=== PATIENT | male | born 1955 | race African-American/Black ===

== ENCOUNTER 2018-05-25 21:44 | Emergency (ER) | payer MEDICAID ==
[2018-05-25 22:02] VITALS: PULSE 70; TEMP 98.8
[2018-05-25] MEDS ORDERED: Sodium Chloride 0.9% 1,000 ML IV ONE (22:06)
[2018-05-25] MEDS ORDERED: Sodium Chloride 0.9% 1,000 ML ONE (22:34)
[2018-05-25 22:50] LABS: BASO % 0.8 % (0.0-2.0); EOS # 0.1 K/uL (0.0-0.7); EOS % 1.1 % (0.0-4.0); LYMPH % 31.9 % (20.0-40.0); MEAN CELL VOLUME 86.1 fL (80.0-94.0); MEAN CORPUSCULAR HEMOGLOBIN 29.9 pg (27.0-31.0); MEAN CORPUSCULAR HGB CONC 34.7 g/dL (33.0-37.0); MEAN PLATELET VOLUME 8.7 fL (7.2-11.7); MONO # 0.5 K/uL (0.0-0.8); MONO % 7.8 % (0.0-10.0); NEUT # 3.7 K/uL (1.8-7.0); NEUT % 58.4 % (50.0-75.0); NRBC % 0.1 % (0.0-2.0); RBC 5.02 Mil/uL (4.40-5.90); WHITE BLOOD COUNT 6.3 K/uL (4.8-10.8)
[2018-05-25 23:07] LABS: ALB/GLOB RATIO 1.2 (1.0-2.1); ALBUMIN 4.4 g/dL (3.5-5.0); ALT/SGPT 32 U/L (21-72); AST/SGOT 23 U/L (17-59); BLOOD UREA NITROGEN 18 mg/dL (9-20); CALCIUM 9.3 mg/dl (8.6-10.4); GFR NON-AFRICAN AMERICAN > 60; LIPASE 78 U/L (23-300)
--- NOTE | 2018-05-25 23:23 | C.PDOC ---
History Of Present Illness 62-year-old male presents to the ED for evaluation of left-sided flank pain that radiates to his left groin. Patient notes his symptoms resolved prior to ED arrival. He denies fever, chills, nausea, vomiting. Time Seen by Provider: 05/25/18 21:56 Chief Complaint (Nursing): Abdominal Pain History Per: Patient History/Exam Limitations: no limitations Onset/Duration Of Symptoms: Hrs Current Symptoms Are (Timing): Gone Radiation Of Pain To:: Flank (left) Quality Of Discomfort: "Pain" Associated Symptoms: denies: Fever, Chills, Nausea, Vomiting Additional History Per: Patient Past Medical History Reviewed: Historical Data, Nursing Documentation, Vital Signs Vital Signs: Last Vital Signs Temp 98.8 F 05/25/18 22:00 Pulse 70 05/25/18 23:28 Resp 14 05/25/18 23:28 BP 160/80 H 05/25/18 23:28 Pulse Ox 99 05/26/18 05:06 - Medical History PMH: HTN Surgical History: No Surg Hx Family History: States: Unknown Family Hx - Social History Hx Alcohol Use: No Hx Substance Use: No - Immunization History Hx Tetanus Toxoid Vaccination: No Hx Influenza Vaccination: No Hx Pneumococcal Vaccination: No Review Of Systems Constitutional: Negative for: Fever, Chills Gastrointestinal: Negative for: Nausea, Vomiting Musculoskeletal: Positive for: Other (left-sided flank pain, left groin pain ) Physical Exam - Physical Exam Appears: Non-toxic, No Acute Distress Skin: Normal Color, Warm, Dry Head: Atraumatic, Normacephalic Eye(s): bilateral: Normal Inspection Oral Mucosa: Moist Neck: Supple Chest: Symmetrical, No Deformity, No Tenderness Cardiovascular: Rhythm Regular, No Murmur Respiratory: Normal Breath Sounds, No Rales, No Rhonchi, No Wheezing Gastrointestinal/Abdominal: Soft, No Tenderness, No Guarding, No Rebound Back: Other (pain with percussion of costovertebral angle) Extremity: Normal ROM, Capillary Refill (less than 2 seconds ) Neurological/Psych: Oriented x3, Normal Speech, Normal Cognition ED Course And Treatment - Laboratory Results Result Diagrams: 05/25/18 22:44 05/25/18 22:44 O2 Sat by Pulse Oximetry: 99 (on RA) Pulse Ox Interpretation: Normal - CT Scan/US CT A/P Other Rad Studies (CT/US): Read By Radiologist, Radiology Report Reviewed CT/US Interpretation: IMPRESSION: Recently passed stone from the left collecting system now within the urinary bladder just beyond the. UVJ, 4 mm in size. Moderate left hydronephrosis is present. Progress Note: Bloodwork, urinalysis, CT A/P ordered and reviewed. Toradol IVP and IV fluids given. Medical Decision Making Medical Decision Making: passed L 4 mm stone Disposition Doctor Will See Patient In The: Office Counseled Patient/Family Regarding: Studies Performed, Diagnosis - Disposition Referrals: [facility] [Outside] [facility] [Outside] [facility] [Outside] Disposition: HOME/ ROUTINE Disposition Time: 23:22 Condition: GOOD Additional Instructions: passed 4 mm stone continue motrin 600 mg every 6 hours as needed drink plenty of water follow-up in our outpatient [facility] as needed. Instructions: Renal Colic Forms: [employer] ([place]) - Clinical Impression Clinical Impression: Renal colic on left side - Scribe Statement The provider has reviewed the documentation as recorded by the Scribe (Shannon Dao) Provider Attestation: All medical record entries made by the Scribe were at my direction and personally dictated by me. I have reviewed the chart and agree that the record accurately reflects my personal performance of the history, physical exam, medical decision making, and the department course for this patient. I have also personally directed, reviewed, and agree with the discharge instructions and disposition.
[2018-05-25 23:26] LABS: SQUAMOUS EPITHIAL < 1 /hpf (0-5); URINE BACTERIA RARE (<OCC); URINE BILIRUBIN NEGATIVE (NEGATIVE); URINE BLOOD 3+ (NEGATIVE); URINE CLARITY Hazy (Clear); URINE COLOR Yellow (YELLOW); URINE GLUCOSE (UA) NORMAL (Normal); URINE LEUKOCYTE ESTERASE TRACE Leu/uL (Negative); URINE PROTEIN NEGATIVE (NEGATIVE); URINE UROBILINOGEN NORMAL mg/dL (0.2-1.0)
[2018-05-25 23:31] VITALS: BP 160/80; RESP 14
[2018-05-26 05:06] VITALS: O2SAT 99
--- NOTE | 2018-05-26 09:24 | CT ---
Date of service: 05/25/2018 PROCEDURE: CT Abdomen and Pelvis without intravenous contrast HISTORY: L flank, ? renal colic COMPARISON: Not available TECHNIQUE: Without contrast.. Contrast dose: 0 Radiation dose: Total exam DLP = 456.86 mGy-cm. This CT exam was performed using one or more of the following dose reduction techniques: Automated exposure control, adjustment of the mA and/or kV according to patient size, and/or use of iterative reconstruction technique. FINDINGS: LOWER THORAX: Unremarkable. LIVER: Mild hepatomegaly. The liver measures approximately 22 cm craniocaudal. Mildly nodular contour suspicious for hepatic cirrhosis. Please correlate. No mass. No biliary dilatation. Normal attenuation. GALLBLADDER AND BILE DUCTS: Unremarkable. PANCREAS: Unremarkable. No gross lesion or ductal dilatation. SPLEEN: Mild splenomegaly. The spleen measures approximately 13.9 cm in greatest dimension. No mass. ADRENALS: Unremarkable. No mass. KIDNEYS AND URETERS: Mild left hydroureteronephrosis. There is a 5 mm calculus at the left ureteral orifice, possibly obstructing or resting dependently at the left bladder base. There is no renal calculus. There is a rounded hyperdense pedunculated right lower pole renal cortical mass, 1.5 cm in diameter. This measures 69 Hounsfield units in attenuation. Although this most likely represents a hyperdense cyst, correlation with renal ultrasound examination is suggested. VASCULATURE: Unremarkable. No aortic aneurysm. BOWEL: Unremarkable. No obstruction. No gross mural thickening. APPENDIX: Unremarkable. Normal appendix. PERITONEUM: No ascites or pneumoperitoneum. Very small umbilical hernia containing only mesenteric fat. LYMPH NODES: Shotty subcentimeter retroperitoneal nodes. No pelvic lymphadenopathy. BLADDER: Poorly distended. REPRODUCTIVE: Normal prostate BONES: No acute fracture. OTHER FINDINGS: None. IMPRESSION: 5 mm calculus at left ureteral orifice with mild left hydroureteronephrosis. Probable hyperdense cyst arising from lower pole right kidney. Recommend correlation with ultrasound. Mild hepatosplenomegaly. Faintly nodular hepatic contour suspicious for hepatic cirrhosis. Please correlate. Nonspecific shotty subcentimeter retroperitoneal nodes. No additional abnormality. The preliminary findings for this examination were reported by [facility] at 11:16 p.m. on 05/25/2018. There is concurrence of this report with the preliminary findings.
== END 2018-05-25 23:31 | disposition home or self-care (01) ==
LOC: C.ER 21:44
DX: N13.2 Hydronephrosis with renal and ureteral calculous obstruction (principal)
CPT/HCPCS: 74176; 80053; 81001; 83690; 85025; 96374; 99284; J1885; J7030